=== PATIENT | male | born 1960 | race Caucasian/White ===

== ENCOUNTER → 2020-03-09 | Outpatient (CLI) | payer OTHER, SELFPAY | PROVIDERS: Referring Provider Internal Medicine; Visit Provider Internal Medicine | DX: Z23 Encounter for immunization (principal) | CPT/HCPCS: 90471; 90686 ==

== ENCOUNTER → 2020-06-09 07:33 | Outpatient (CLI) | payer OTHER, SELFPAY ==
[2020-06-09] MEDS: COVID-19 VACC(MODERNA-1)/PF 100 MCG/0.5 ML VIAL IM (07:38)
== END ==
PROVIDERS: Visit Provider Internal Medicine
DX: Z23 Encounter for immunization (principal)
CPT/HCPCS: 0011A; 91301

== ENCOUNTER → 2020-07-06 07:42 | Outpatient (CLI) | payer OTHER, SELFPAY ==
[2020-07-06] MEDS: COVID-19 VACC #2, MRNA(MOD) 100 MCG/0.5 ML VIAL IM (07:48)
== END ==
PROVIDERS: Visit Provider Internal Medicine
DX: Z23 Encounter for immunization (principal)
CPT/HCPCS: 0012A; 91301

== ENCOUNTER → 2020-12-19 09:46 | Outpatient (CLI) | payer OTHER, SELFPAY ==
--- NOTE | 2020-12-19 09:48 | DI.RAD.S_ITS ---
PROCEDURE: XR LUMBAR SPINE MIN 4V INDICATIONS: BACK PAIN TECHNIQUE: 5 views of the lumbar spine were acquired, including bilateral oblique views. COMPARISON: [facility], MR, LUMBAR SPINE W/O CONTRAST, 05/31/2014, 14:46. FINDINGS: Bones: 5 nonrib-bearing vertebrae are present. There is trace dextroconvex curvature of the lumbar spine. No vertebral body compression fractures. No suspicious bony lesions. Multilevel disc space narrowing and degenerative endplate changes are seen that are worst at the L4-5 and L5-S1 levels. Facet hypertrophy is seen at L4-5 and L5-S1. Soft tissues: Overlying bowel gas pattern is normal. No suspicious soft tissue calcifications. Oblique images: No pars defects. IMPRESSION: No acute osseous abnormality. Multilevel spondylosis. Dictated by: Hiram Hamilton M.D. on 12/19/2020 at 11:58 Approved by: Hiram Hamilton M.D. on 12/19/2020 at 12:01
== END ==
PROVIDERS: PCP Family Medicine; Referring Provider Physical Medicine & Rehabilitation; Visit Provider Physical Medicine & Rehabilitation
DX: M51.26 Other intervertebral disc displacement, lumbar region (principal); M54.9 Dorsalgia, unspecified; M47.816 Spondylosis without myelopathy or radiculopathy, lumbar region; M47.817 Spondylosis without myelopathy or radiculopathy, lumbosacral region
CPT/HCPCS: 72110

== ENCOUNTER → 2021-01-04 10:54 | Outpatient (CLI) | payer OTHER, SELFPAY ==
--- NOTE | 2021-01-04 10:55 | DI.MRI.S_ITS ---
PROCEDURE: MR LUMBAR SPINE WO CON INDICATIONS: lumbar radicu TECHNIQUE: Noncontrast sagittal T1 spin echo and T2 fast echo, sagittal STIR, axial T1 and T2 fast spin echo through the lumbar spine. In cases with scoliosis, additional coronal T2 fast spin echo may be performed. COMPARISON: [facility], CR, XR LUMBAR SPINE MIN 4V, 12/19/2020, 9:49. [facility], MR, LUMBAR SPINE W/O CONTRAST, 05/31/2014, 14:46. FINDINGS: Image quality: This examination is limited by involuntary motion artifact. Alignment and Curvature: There is minimal retrolisthesis seen at L3-L4, L4-L5, and L5-S1. Bone Marrow: Marrow is of normal overall signal. No acute vertebral body compression fractures. Spinal Cord: Conus medullaris terminates at the L1 level. Visualized cord demonstrates normal signal and size. Paraspinous Soft Tissues: No paravertebral masses. T11-T12: At least moderate loss of disc height is seen. Loss of disc signal is seen. Bridging endplate osteophytes are seen. At least moderate neural foraminal narrowing can be seen. Mild central canal narrowing is seen. These imaging findings have progressed compared to the prior study. T12-L1: Normal appearance. L1-L2: The disc height is well-preserved. Loss of disc signal is seen at this level. Mild generalized disc bulge is seen. Mild to moderate bilateral neural foraminal narrowing can be seen. No central canal narrowing is seen. These imaging findings have progressed compared to the prior study. L2-L3: The disc height is well-preserved. Loss of disc signal is seen at this level. Mild to moderate disc bulge is seen. Mild facet joint hypertrophy is seen. There is at least moderate bilateral neural foraminal narrowing seen at this level. There is a degree of compression seen upon the exiting nerve roots. Moderate central canal narrowing is seen. The previously seen right lateral disc extrusion is no longer definitely seen. When comparison is made with the prior images, these findings are otherwise similar. L3-L4: Moderate loss of disc height is seen. Loss of disc signal is seen. Moderate disc bulge is seen, which is eccentric to the left. Mild facet joint hypertrophy is seen. There is [id number] right-sided and at least moderate left-sided neural foraminal narrowing seen. There is a degree of compression seen upon the exiting left L3 nerve root. Moderate central canal narrowing is seen. When comparison is made with the prior images, these findings are similar. L4-L5: [id number] loss of disc height and disc signal can be seen. At least moderate disc bulge is seen, which is eccentric to the right. There is at least moderate facet hypertrophy seen at this level. There is at least moderate left-sided and moderate to severe right-sided neural foraminal narrowing seen.22There is a degree of compression seen upon the exiting nerve roots. Moderate central canal narrowing is seen. There is slight progression compared to 2014. L5-S1: Moderate to severe loss of disc height and disc signal can be seen at this level. Reactive marrow endplate changes are seen, which are hyperintense on T1-weighted and T2-weighted imaging and most consistent with fatty metaplasia (Modic type II changes). At least moderate disc bulge is seen at this level. Moderate facet joint hypertrophy is seen. There is moderate to severe bilateral neural foraminal narrowing seen, which is worse on the left than on the right. There is a degree of compression seen upon the exiting nerve roots. The central canal is widely patent. When comparison is made with the prior images, these findings are similar. IMPRESSION: Multiple levels of lumbar spine degenerative change are seen, which are overall slightly progressed compared to 2014. Dictated by: Jay Snider M.D. on 01/04/2021 at 10:42 Approved by: Jay Snider M.D. on 01/04/2021 at 10:48
== END ==
PROVIDERS: PCP Family Medicine; Referring Provider Physical Medicine & Rehabilitation; Visit Provider Physical Medicine & Rehabilitation
DX: M47.26 Other spondylosis with radiculopathy, lumbar region (principal); M47.27 Other spondylosis with radiculopathy, lumbosacral region
CPT/HCPCS: 72148

== ENCOUNTER → 2021-03-21 | Outpatient (CLI) | payer OTHER, SELFPAY | PROVIDERS: PCP Family Medicine; Referring Provider Internal Medicine; Visit Provider Internal Medicine | DX: Z23 Encounter for immunization (principal) | CPT/HCPCS: 90471; 90686 ==

== ENCOUNTER → 2022-03-06 11:29 | Outpatient (CLI) | payer OTHER, SELFPAY | PROVIDERS: PCP Family Medicine; Referring Provider Internal Medicine; Visit Provider Internal Medicine | DX: Z23 Encounter for immunization (principal) | CPT/HCPCS: 90471; 90686 ==

== ENCOUNTER → 2022-09-26 08:49 | Outpatient (CLI) | payer OTHER, SELFPAY ==
--- NOTE | 2022-09-26 08:51 | DI.RAD.S_ITS ---
PROCEDURE: XR SHOULDER RT MIN 2V INDICATIONS: Right shoulder impingement TECHNIQUE: 3 views of the shoulder were acquired. COMPARISON: None. FINDINGS: Bones: No fractures or dislocations. No suspicious bony lesions. Visualized ribs appear intact. Intact glenoid screw with no evidence of hardware failure or loosening. Moderate to severe glenohumeral joint degenerative change with severe joint space loss at the inferior aspect of the glenohumeral joint. Soft tissues: No suspicious soft tissue calcifications. IMPRESSION: Moderate to severe glenohumeral joint degenerative change. Dictated by: Rex Mcleod M.D. on 09/26/2022 at 11:22 Approved by: Rex Mcleod M.D. on 09/26/2022 at 11:24
== END ==
PROVIDERS: PCP Family Medicine; Referring Provider Physical Medicine & Rehabilitation; Visit Provider Physical Medicine & Rehabilitation
DX: M75.41 Impingement syndrome of right shoulder (principal)
CPT/HCPCS: 73030

== ENCOUNTER → 2023-02-12 07:24 | Outpatient (CLI) | payer OTHER, SELFPAY ==
--- NOTE | 2023-02-12 07:25 | DI.MRI.S_ITS ---
PROCEDURE: MR SHOULDER RT WO/W CON INDICATIONS: Glenohumeral DJD hx of dislocation and ivania procedure TECHNIQUE: Noncontrast oblique coronal STIR, oblique sagittal T1 spin echo and STIR, axial T1 spin echo with and without fat saturation and STIR through the shoulder. Post-contrast oblique coronal, oblique sagittal, and axial T1 spin echo with fat saturation through the shoulder. COMPARISON: [facility], CR, XR SHOULDER RT MIN 2V, 09/26/2022, 8:47. FINDINGS: Image quality: Excellent. Rotator cuff: There is high-grade partial articular sided tearing of the supraspinatus tendon and infraspinatus tendon at their distal insertions. A nonedematous 8 mm ossification is seen along the distal supraspinatus tendon near its insertion onto the greater tuberosity that may represent the sequela of a remote prior avulsion injury versus an intra-articular loose body or less likely calcific tendinopathy. The teres minor tendon is intact. The subscapularis tendon is partially obscured but glenoid metal artifact, but appears to demonstrate tendinosis and focal low-grade partial intrasubstance tearing distally. No significant rotator cuff muscle atrophy is seen. Bones and bursae: No acute osseous fracture. A metal screw is noted at the anterior glenoid with associated metal artifact that obscures adjacent structures. There appears to be adequate bone stock at the anteroinferior glenoid. A chronic Hill-Sachs lesion is seen at the posterosuperior humeral head measuring up to 28 x 25 x 9 mm. Chronic cystic changes are seen at the posterosuperior humeral head and the greater tuberosity. No significant glenohumeral effusion. Moderate to severe degenerative changes are seen at the acromioclavicular joint with subchondral edema, subchondral cystic changes, and inferiorly projecting osteophytes that impinge upon the dorsal supraspinatus. A small amount of fluid is seen in the subacromial/subdeltoid bursa. Capsule and soft tissues: No enhancing soft tissue mass. There is nondisplaced tearing of the posterior labrum with uptake of seldovia joint fluid. The anterior labrum is not well evaluated due to metal artifact. The proximal biceps long head tendon is intact. No capsular defect is seen. IMPRESSION: 1. Postsurgical changes are seen from anterior glenoid augmentation with associated metal artifact that obscures adjacent structures including the anterior labrum. 2. Nondisplaced tearing of the posterior labrum. 3. Moderate to large chronic Hill-Sachs lesion at the posterosuperior humeral head measuring 28 x 25 x 9 mm. 4. High-grade partial articular sided tearing of the supraspinatus tendon and the infraspinatus tendon at their distal insertions. A nonedematous 8 mm ossification at the distal supraspinatus tendon may be the sequela of a remote prior avulsion injury versus an intra-articular loose body or less likely calcific tendinopathy. 5. Tendinosis and suspected focal low-grade partial intrasubstance tearing of the subscapularis tendon at the superior insertion. 6. Moderate to severe acromioclavicular osteoarthrosis including inferiorly projecting osteophyte formation that impinges upon the dorsal supraspinatus. Approved by: Hiram Hamilton M.D. on 02/15/2023 at 14:14
== END ==
PROVIDERS: PCP Family Medicine; Referring Provider Physical Medicine & Rehabilitation; Visit Provider Physical Medicine & Rehabilitation
DX: M19.011 Primary osteoarthritis, right shoulder (principal); M75.111 Incomplete rotator cuff tear or rupture of right shoulder, not specified as traumatic; S43.491A Other sprain of right shoulder joint, initial encounter; Z87.39 Personal history of other diseases of the musculoskeletal system and connective tissue
CPT/HCPCS: 73223; A9579

== ENCOUNTER 2023-03-07 15:45 | Outpatient (CLI) | payer OTHER, SELFPAY ==
--- NOTE | 2023-03-07 15:46 | DI.RAD.S_ITS ---
PROCEDURE: PAIN L/SI FACET INJ/BLK 1STL INDICATIONS: SPONDYLOSIS COMPARISON: None. FINDINGS: Fluoroscopic spot filming was performed to verify placement of spinal needles at the right L4, L5 and S1 pedicular level(s), as labeled on the films. Appropriate location(s) of the needle tip(s) was confirmed by injection of iodinated contrast. IMPRESSION: Access needles at the b right L4, L5 and S1 pedicles for right L4, L5 and S1 medial branch block. Dictated by: Monique Leigh MD, PhD on 03/07/2023 at 17:06 Approved by: Monique Leigh MD, PhD on 03/07/2023 at 17:07
[2023-03-07 16:00] VITALS: BP 197/75; PULSE 61; RESP 20; TEMP 36.3; O2SAT 99
[2023-03-07 16:28] VITALS: BP 129/73; PULSE 57; RESP 14; O2SAT 100
[2023-03-07] MEDS: BUPIVACAINE 0.5% (PF) 10 ML VIAL 2 ML INJ (16:29)
[2023-03-07] MEDS: iopamidoL 15 ML VIAL 3 ML INJ (16:29)
[2023-03-07 16:33] VITALS: BP 132/77; PULSE 60; RESP 15; O2SAT 99
[2023-03-07 16:34] VITALS: BP 132/78; PULSE 58; RESP 19; O2SAT 99
--- NOTE | 2023-03-07 16:38 | PM.PROC.IR.1 ---
Date/Time/Diagnoses Date of procedure: 03/07/23 Time of procedure: 16:38 Pre-procedure diagnosis: 1. FACET ARTHROPATHY Post-procedure diagnosis: same Procedure Notes Procedure: 1. Right L4, L5 and S1 MB BLOCKS LA Indications: Bijan is referred by Dr. Stanley for treatment of Right Axial LBP. Physician: Jeffrey Miller Total Fluoroscopy time (seconds): 7 Total sedation minutes: 0 Complications: none Procedure in detail & Post-procedure care: DESCRIPTION OF PROCEDURE Fluoroscopically guided, contrast-controlled right L4, L5 and S1 medial branch blocks with 0.5cc of 0.5% Marcaine. Following review of allergy and review of potential side effects and complications, including, but not necessarily limited to, infection, allergic reaction, local tissue breakdown, nerve injury, paralysis, stroke and possible , the patient indicated that the patient understood and agreed to proceed. An informed consent document was signed by the patient, witnessed by a nurse, and placed in the patient's chart. After review of previous anaesthesic history and IV conscious sedation the patient was deemed safe to proceed with today?s procedure with IV conscious sedation as ASA class II designation. Safety time-out was performed to confirm patient ID, procedure to be performed and site of procedure. IV sedation was deemed unnecessary and thus not administered by the RN after DO order, titrated to patient comfort during the course of the procedure while the patient remained responsive to all verbal commands In the prone position, following sterile prep and drape of the lumbar region, the right L4, L5 and S1 anatomical location of the medial branch of the dorsal ramus was identified fluoroscopically. Subsequently an anesthetic skin wheal using 1% lidocaine solution was initiated at each of the anatomical spots. Subsequently then a 22-gauge 3.5-inch spinal needle was atraumatically introduced and advanced under fluoroscopic guidance at each of the corresponding sites at the right L4, L5 and S1 MB. After negative aspiration, 0.2 cc of Isovue 200 was injected, confirming placement without vascular or intrathecal uptake. Subsequently then 0.5 cc of 0.5% Marcaine solution was injected at each of the corresponding sites at the right L4, L5 and S1 medial branch locations. The patient tolerated the procedure well without signs or symptoms of complications. The procedure tolerated the procedure well without signs or symptoms of complications prior to transfer to the recovery area continued monitoring without incident. Post-procedure, the patient was monitored initiating provocative activities to measure the amount of relief from block of the facetogenic pain. The patient reported a VAS of 7 prior to the procedure and a post-procedure VAS of 1. It has been a pleasure to assist in the diagnostic and therapeutic care of your patient. POST OP INSTRUCTIONS The patient was provided with a Pain Log to complete over the next several hours and subsequent days prior to the patient's follow up with the ordering physician. If the patient has supervisor concrete block plant relief to the solution applied, then they may be a candidate for medial branch rhizotomy. The patient is aware, was provided, once again, with a Pain Log and will follow up with the referring physician for review and clinical correlation.
[2023-03-07 16:40] VITALS: BP 135/79; PULSE 52; RESP 16; O2SAT 97
== END 2023-03-07 16:50 | disposition home or self-care (01) ==
LOC: RAD 15:45
PROVIDERS: PCP Family Medicine; Referring Provider Physical Medicine & Rehabilitation; Visit Provider Physical Medicine & Rehabilitation
DX: M47.816 Spondylosis without myelopathy or radiculopathy, lumbar region (principal)
CPT/HCPCS: 64493; 64494

== ENCOUNTER → 2023-03-19 | Outpatient (CLI) | payer OTHER, SELFPAY | PROVIDERS: PCP Family Medicine; Referring Provider Family Medicine; Visit Provider Family Medicine | DX: Z23 Encounter for immunization (principal) | CPT/HCPCS: 90471; 90686 ==

== ENCOUNTER 2023-03-26 14:51 | Outpatient (CLI) | payer OTHER, SELFPAY ==
--- NOTE | 2023-03-26 14:52 | DI.RAD.S_ITS ---
PROCEDURE: PAIN L/SI FACET INJ/BLK 1STL INDICATIONS: SPONDYLOSIS COMPARISON: [facility], , PAIN L/SI FACET INJ/BLK 1STL, 03/07/2023, 16:28. FINDINGS: Fluoroscopic spot filming was performed to verify placement of spinal needles at the right L4, L5 and S1 level(s), as labeled on the films. Appropriate location(s) of the needle tip(s) was confirmed by injection of iodinated contrast. IMPRESSION: Access needles placed for right L4, L5 and S1 medial branch blocks. Dictated by: Monique Leigh MD, PhD on 03/26/2023 at 15:36 Approved by: Monique Leigh MD, PhD on 03/26/2023 at 15:37
[2023-03-26 15:00] VITALS: BP 127/75; PULSE 62; RESP 16; TEMP 36.1; O2SAT 99
[2023-03-26 15:12] VITALS: BP 136/70; PULSE 61; RESP 15; O2SAT 99
[2023-03-26] MEDS: iopamidoL 15 ML VIAL 3 ML INJ (15:12)
[2023-03-26] MEDS: LIDOCAINE 2% INJ SDV 5ML 2 ML INJ (15:13)
[2023-03-26 15:17] VITALS: BP 137/75; PULSE 60; RESP 21; O2SAT 100
[2023-03-26 15:18] VITALS: BP 139/80; PULSE 60; RESP 19; O2SAT 100
[2023-03-26 15:20] VITALS: BP 132/81; PULSE 63; RESP 16; O2SAT 100
--- NOTE | 2023-03-26 15:24 | PM.PROC.IR.1 ---
Date/Time/Diagnoses Date of procedure: 03/26/23 Time of procedure: 15:24 Pre-procedure diagnosis: Lumbar Facet Arthropathy Post-procedure diagnosis: same Procedure Notes Procedure: 1. Right L4, L5 and S1 MB BLOCKS SA Indications: Bijan is referred by Dr. Stanley for treatment of Right Axial LBP. Physician: Jeffrey Miller Total Fluoroscopy time (seconds): 5 Total sedation minutes: 0 Complications: none Procedure in detail & Post-procedure care: DESCRIPTION OF PROCEDURE Fluoroscopically guided, contrast-controlled right L4, L5 and S1 medial branch blocks with 0.5cc of 2% Lidocaine. Following review of allergy and review of potential side effects and complications, including, but not necessarily limited to, infection, allergic reaction, local tissue breakdown, nerve injury, paralysis, stroke and possible , the patient indicated that the patient understood and agreed to proceed. An informed consent document was signed by the patient, witnessed by a nurse, and placed in the patient's chart. After review of previous anaesthesic history and IV conscious sedation the patient was deemed safe to proceed with today?s procedure with IV conscious sedation as ASA class II designation. Safety time-out was performed to confirm patient ID, procedure to be performed and site of procedure. IV sedation was deemed unnecessary and thus was not administered by the RN after DO order, titrated to patient comfort during the course of the procedure while the patient remained responsive to all verbal commands In the prone position, following sterile prep and drape of the lumbar region, the right L4, L5 and S1 anatomical location of the medial branch of the dorsal ramus was identified fluoroscopically. Subsequently an anesthetic skin wheal using 1% lidocaine solution was initiated at each of the anatomical spots. Subsequently then a 22-gauge 3.5-inch spinal needle was atraumatically introduced and advanced under fluoroscopic guidance at each of the corresponding sites at the right L4, L5 and S1 MB. After negative aspiration, 0.2 cc of Isovue 200 was injected, confirming placement without vascular or intrathecal uptake. Subsequently then 0.5 cc of 2% Lidocaine solution was injected at each of the corresponding sites at the right L4, L5 and S1 medial branch locations. The patient tolerated the procedure well without signs or symptoms of complications. The procedure tolerated the procedure well without signs or symptoms of complications prior to transfer to the recovery area continued monitoring without incident. Post-procedure, the patient was monitored initiating provocative activities to measure the amount of relief from block of the facetogenic pain. The patient reported a VAS of 7 prior to the procedure and a post-procedure VAS of 1. It has been a pleasure to assist in the diagnostic and therapeutic care of your patient. POST OP INSTRUCTIONS The patient was provided with a Pain Log to complete over the next several hours and subsequent days prior to the patient's follow up with the ordering physician. If the patient has component engineer relief to the solution applied, then they may be a candidate for medial branch rhizotomy. The patient is aware, was provided, once again, with a Pain Log and will follow up with the referring physician for review and clinical correlation.
== END 2023-03-26 15:33 | disposition home or self-care (01) ==
LOC: RAD 14:51
PROVIDERS: PCP Family Medicine; Referring Provider Physical Medicine & Rehabilitation; Visit Provider Physical Medicine & Rehabilitation
DX: M47.816 Spondylosis without myelopathy or radiculopathy, lumbar region (principal)
CPT/HCPCS: 64493; 64494

== ENCOUNTER 2023-05-16 10:54 | Outpatient (CLI) | payer OTHER, SELFPAY | END 2023-05-16 11:30 | disposition home or self-care (01) | LOC: RAD 10:56 | PROVIDERS: Referring Provider Physical Medicine & Rehabilitation; Visit Provider Physical Medicine & Rehabilitation ==

== ENCOUNTER 2023-06-06 12:50 | Outpatient (CLI) | payer OTHER, SELFPAY ==
[2023-06-06 13:00] VITALS: BP 120/72; PULSE 61; RESP 18; O2SAT 100
--- NOTE | 2023-06-06 13:00 | DI.RAD.S_ITS ---
PROCEDURE: PAIN L/SI FACET INJ/BLK 1STL INDICATIONS: Left L4, L5 and S1 MBB LA COMPARISON: MR, MR LUMBAR SPINE WO CON, 01/04/2021, 10:59. MR, LUMBAR SPINE W/O CONTRAST, 05/31/2014, 14:46. FINDINGS: Fluoroscopic spot filming was performed to verify placement of spinal needles at the left L4, L5 and S1 level(s), as labeled on the films. Appropriate location(s) of the needle tip(s) was confirmed by injection of iodinated contrast. IMPRESSION: Fluoroscopy guidance for pain management. Dictated by: Aliya Javier M.D. on 06/06/2023 at 14:15 Approved by: Aliya Javier M.D. on 06/06/2023 at 14:16
[2023-06-06 13:15] VITALS: BP 132/73; PULSE 58; RESP 17; O2SAT 99
[2023-06-06 13:20] VITALS: BP 117/71; PULSE 58; RESP 19; O2SAT 100
[2023-06-06] MEDS: BUPIVACAINE 0.5% (PF) 10 ML VIAL 2 ML INJ (13:21)
[2023-06-06] MEDS: iopamidoL 15 ML VIAL 3 ML INJ (13:22)
[2023-06-06 13:25] VITALS: BP 124/76; PULSE 62; RESP 18; O2SAT 98
--- NOTE | 2023-06-06 13:33 | PM.PROC.IR.1 ---
Date/Time/Diagnoses Date of procedure: 06/06/23 Time of procedure: 13:33 Pre-procedure diagnosis: 1. FACET ARTHROPATHY Post-procedure diagnosis: same Procedure Notes Procedure: 1. Left L4, L5 and S1 MB BLOCKS LA Indications: Bijan is referred for treatment of Left Axial LBP. Physician: Jeffrey Miller Total Fluoroscopy time (seconds): 7 Total sedation minutes: 0 Complications: none Procedure in detail & Post-procedure care: DESCRIPTION OF PROCEDURE Fluoroscopically guided, contrast-controlled left L4, L5 and S1 medial branch blocks with 0.5cc of 0.5% Marcaine. Following review of allergy and review of potential side effects and complications, including, but not necessarily limited to, infection, allergic reaction, local tissue breakdown, nerve injury, paralysis, stroke and possible , the patient indicated that the patient understood and agreed to proceed. An informed consent document was signed by the patient, witnessed by a nurse, and placed in the patient's chart. After review of previous anaesthesic history and IV conscious sedation the patient was deemed safe to proceed with today?s procedure with IV conscious sedation as ASA class II designation. Safety time-out was performed to confirm patient ID, procedure to be performed and site of procedure. IV sedation was deemed unnecessary and this not administered by the RN after DO order, titrated to patient comfort during the course of the procedure while the patient remained responsive to all verbal commands. In the prone position, following sterile prep and drape of the lumbar region, the left L4, L5 and S1 anatomical location of the medial branch of the dorsal ramus was identified fluoroscopically. Subsequently an anesthetic skin wheal using 1% lidocaine solution was initiated at each of the anatomical spots. Subsequently then a 22-gauge 3.5-inch spinal needle was atraumatically introduced and advanced under fluoroscopic guidance at each of the corresponding sites at the left L4, L5 and S1 MB. After negative aspiration, 0.2cc of Isovue 200 was injected, confirming placement without vascular or intrathecal uptake. Subsequently then 0.5cc of 0.5% Marcaine solution was injected at each of the corresponding sites at the left L4, L5 and S1 medial branch locations. The patient tolerated the procedure well without signs or symptoms of complications. The patient tolerated the procedure well without signs or symptoms of complications prior to transfer to the recovery area continued monitoring without incident. Post-procedure, the patient was monitored initiating provocative activities to measure the amount of relief from block of the facetogenic pain. The patient reported a VAS of 7 prior to the procedure and a post-procedure VAS of 1. It has been a pleasure to assist in the diagnostic and therapeutic care of your patient. POST OP INSTRUCTIONS The patient was provided with a Pain Log to complete over the next several hours and subsequent days prior to the patient's follow up with the ordering physician. If the patient has cooler room worker relief to the solution applied, then they may be a candidate for medial branch rhizotomy. The patient is aware, was provided, once again, with a Pain Log and will follow up with the referring physician for review and clinical correlation.
[2023-06-06 13:35] VITALS: BP 120/78; PULSE 60; RESP 19; O2SAT 100
== END 2023-06-06 13:35 | disposition home or self-care (01) ==
LOC: RAD 12:51
PROVIDERS: Referring Provider Physical Medicine & Rehabilitation; Visit Provider Physical Medicine & Rehabilitation
DX: M47.816 Spondylosis without myelopathy or radiculopathy, lumbar region (principal); M47.817 Spondylosis without myelopathy or radiculopathy, lumbosacral region
CPT/HCPCS: 64493; 64494; 64495

== ENCOUNTER 2023-08-21 15:45 | Outpatient (CLI) | payer OTHER, SELFPAY ==
[2023-08-21 15:50] VITALS: BP 133/80; PULSE 61; RESP 16; TEMP 36.2; O2SAT 100
[2023-08-21 16:00] VITALS: BP 131/72; PULSE 62; RESP 18; O2SAT 98
--- NOTE | 2023-08-21 16:00 | DI.RAD.S_ITS ---
PROCEDURE: PAIN L/SI FACET INJ/BLK 1STL INDICATIONS: SPONDYLOSIS COMPARISON: [facility], , PAIN L/SI FACET INJ/BLK 1STL, 06/06/2023, 14:20. FINDINGS: Fluoroscopic spot filming was performed to verify placement of spinal needles at the left L3, L4, L5 level(s), as labeled on the films. Appropriate location(s) of the needle tip(s) was confirmed by injection of iodinated contrast. IMPRESSION: Fluoroscopic support for left L3, L4, L5 medial branch blocks. Please see separate procedure note for further details. Dictated by: Anton Nelson M.D. on 08/21/2023 at 17:39 Approved by: Anton Nelson M.D. on 08/21/2023 at 17:39
[2023-08-21 16:05] VITALS: BP 145/83; PULSE 59; RESP 19; O2SAT 98
[2023-08-21] MEDS: iopamidoL 15 ML VIAL 3 ML INJ (16:07)
[2023-08-21] MEDS: LIDOCAINE 2% INJ SDV 5ML 5 ML INJ (16:07)
--- NOTE | 2023-08-21 16:13 | P.PCN_ITS ---
Date/Time/Diagnoses Date of procedure: 08/21/23 Time of procedure: 16:00 Procedure Notes Physician: Donell Treviño Total Fluoroscopy time (seconds): 12 Total sedation minutes: 0 Procedure in detail & Post-procedure care: Left L3, 4, 5 Lumbar Medial Branch Blocks Indications: Bijan is presenting for treatment of lumbar spondylosis with low back pain. Preoperative diagnosis: Lumbar spondylosis Postoperative diagnosis: Same Pre-procedure History: Patient demonstrates today moderate to severe non- radicular back pain without neurologic deficit aggravated by hyperextension yes Back pain greater than leg pain? yes Patient today has tenderness over the suspected joint(s) yes History of post-traumatic injury? no Hypertrophic arthropathy yes Back pain associated with suspected motion segment instability, hypermobility or pseudoarthrosis no Focused Examination: Ax3 Mood and affect are normal Vital Signs: VSS Consent: Following review of allergies and potential side effects/complications, including, but not necessarily limited to, infection, allergic reaction, local tissue breakdown, stroke, temporary or permanent nerve injury, paralysis, and possible , the patient indicated that they understood and agreed to proceed.? An informed consent document was signed by the patient, witnessed by a nurse and placed in the patient's chart.? Additionally, other treatment options including medications and physical therapy were reviewed with the patient. All q uestions were answered. Site was then marked. Anesthesia: Local Position: Prone Monitoring: NIBP, Pulse oximetry, 3 lead EKG Needle used: 22 ga 3.5 inch spinal needle Contrast: Isovue 300M Injectate: 2% lidocaine 1 mL per site Procedure: The patient was brought into the procedure room and positioned into the prone position. Skin was prepped with a Chloraprep solution, allowed to air dry, and then draped in sterile fashion.? The left L4-5 and L5-S1 facet joints were visually identified with fluoroscopy. Lidocaine 1% was used to anesthetize the skin over each target destination with a 25ga needle. A 22 ga, 3.5 inch spinal needle was advanced to the location of the medial branch at the junction of the superior articular process and the transverse process at L4,5 and the base of the SAP of the sacrum using intermittent fluoroscopy in the AP view. Isovue 300M contrast 0.2ml was injected at each level outlining the medial borders for each level and the base of the SAP of the sacrum in the AP and lateral views. There was no evidence of vascular or intrathecal uptake. The above injectate was slowly injected at each target destination. Post Procedure: Patient was taken to the recovery and monitored. The patient was provided a Pain Log to continue to record the patient's response to the target- specific procedure prior to the patient's follow-up visit with the referring physician. Patient was stable upon discharge. Detailed post procedure instructions were provided. Patient was asked to call in the event of worsening pain, fever, weakness, numbness or bladder or bowel incontinence. Based on the medial branches blocked today, if the patient meets insurance criteria for radiofrequency, the treatment should result in the denervation of the left L4-5 and L5-S1 facet joint nerves. We would expect to denervate a total of 2 facets during the radiofrequency ablation.
[2023-08-21 16:14] VITALS: BP 125/81; PULSE 61; RESP 16; O2SAT 100
== END 2023-08-21 16:19 | disposition home or self-care (01) ==
LOC: RAD 15:45
PROVIDERS: Referring Provider Anesthesiology; Visit Provider Anesthesiology
DX: M47.816 Spondylosis without myelopathy or radiculopathy, lumbar region (principal)
CPT/HCPCS: 64493; 64494

== ENCOUNTER → 2023-09-04 12:07 | Outpatient (CLI) | payer OTHER, SELFPAY ==
[2023-09-04 12:53] LABS: Add Manual Diff / Slide Review NO; Basophils Absolute Auto 100 /uL (0-100); Eosinophils Absolute Auto 100 /uL (0-450); Eosinophils Percent Auto 1.1 % (2-4); Hematocrit 42.5 % (41-53); Hemoglobin 14.9 g/dL (13.5-17.5); Lymphocytes Absolute Auto 2000 /uL (1100-4500); Lymphocytes Percent Auto 34.2 % (25-40); Mean Corpuscular Hemoglobin 32.4 PG (26-34); Mean Corpuscular Volume 92.7 fL (80-100); Monocytes Absolute Auto 500 /uL (0-900); Monocytes Percent Auto 8.7 % (3-14); Neutrophils Absolute Auto 3200 /uL (1500-7000); Platelet Count 269 X10^3/uL (150-400); Red Blood Cell Count 4.59 X10^6/uL (4.5-5.9); Red Cell Distribution Width 13.3 % (11.6-14.8); White Blood Cell Count 5.7 X10^3/uL (4.5-11.0)
[2023-09-04 13:18] LABS: Alanine Aminotransferase 33 IU/L (<50); Albumin 4.2 g/dL (3.5-5.0); Albumin Globulin Ratio 1.8 (1.0-2.8); Alkaline Phosphatase 44 U/L (38-126); Aspartate Aminotransferase 42 IU/L (17-59); BUN Creatinine Ratio 21.2 (6-22); Bilirubin Total 1.2 mg/dL (0.2-1.3); Blood Urea Nitrogen 22 mg/dL (9-20); Calcium 9.1 mg/dL (8.4-10.2); Carbon Dioxide 26 mmol/L (22-32); Chloride 104 mmol/L (98-107); Cholesterol 175 mg/dL (140-199); Estimated Glomerular Filt Rate > 60 mL/min (>60); Globulin 2.4 g/dL (1.7-4.1); Glucose 99 mg/dL (80-110); HDL Cholesterol 61 mg/dL (40-60); HEMOLYSIS < 15 (0-50); LDL Cholesterol Calculated 102 mg/dL (<100); Potassium 4.2 mmol/L (3.4-5.1); Sodium 136 mmol/L (137-145); Total Protein 6.6 g/dL (6.3-8.2); Triglycerides 59 mg/dL (35-150)
[2023-09-04 13:49] LABS: Prostate Specific Antigen 1.34 ng/mL (0.10-4.00)
== END ==
PROVIDERS: Referring Provider Specialist; Visit Provider Specialist
DX: Z13.220 Encounter for screening for lipoid disorders (principal); Z13.9 Encounter for screening, unspecified
CPT/HCPCS: 36415; 80053; 80061; 84153; 85025

== ENCOUNTER → 2023-10-09 06:52 | Outpatient (CLI) | payer OTHER, SELFPAY ==
--- NOTE | 2023-10-09 06:53 | DI.MRI.S_ITS ---
PROCEDURE: MR LUMBAR SPINE WO/W CON INDICATIONS: LUMBAR FACET ARTHROPATHY TECHNIQUE: Noncontrast sagittal T1 spin echo and T2 fast echo, sagittal STIR, and T2 fast spin echo through the lumbar spine. In cases with scoliosis, additional coronal T2 fast spin echo may be performed. COMPARISON: [facility], CR, XR LUMBAR SPINE MIN 4V, 12/19/2020, 9:49. [facility], MR, MR LUMBAR SPINE WO CON, 01/04/2021, 10:59. FINDINGS: Image quality: Diagnostic, with note made of motion artifact. Alignment and Curvature: There is normal bony alignment. Bone Marrow: Marrow is of normal overall signal. No acute vertebral body compression fractures. Spinal Cord: Conus medullaris terminates at the L1 level. Visualized cord demonstrates normal signal and size. Paraspinous Soft Tissues: No paravertebral masses. T11-T12: At least moderate loss of disc height and disc signal can be seen. Moderate generalized disc bulge is seen. There is a superimposed central disc protrusion. Mild to moderate facet hypertrophy can be seen. There is moderate to severe bilateral neural foraminal narrowing seen, with an associated degree of compression seen upon the exiting nerve roots. Moderate central canal narrowing is seen. When comparison is made with the prior images, these findings are similar. T12-L1: Normal appearance. L1-L2: The disc height is well-preserved. Loss of disc signal is seen at this level. Mild to moderate disc bulge is seen, which is eccentric to the right. There is a right foraminal disc protrusion, as on series 6, image 8. Mild facet joint hypertrophy is seen. Moderate bilateral neural foraminal narrowing is seen. No significant central canal narrowing is seen. The degrees of neural foraminal narrowing are mildly progressed compared to the prior. L2-L3: The disc height is well-preserved. Loss of disc signal is seen at this level. Moderate disc bulge is seen, with a central/left disc extrusion. The extruded disc material is seen superiorly, seen largely posterior to the L2 vertebral body. The extruded disc material measures 2.6 cm craniocaudal. Mild to moderate facet hypertrophy can be seen. There is at least moderate bilateral neural foraminal narrowing seen, left worse than right. Moderate to severe central canal narrowing is seen, as on series 6, image 10. The disc extrusion and the associated central canal narrowing are new compared to 202. Moderate loss of disc height is seen. Loss of disc signal is seen. L3-L4: Reactive marrow endplate changes are seen which are hypointense on T1-weighted imaging and hyperintense on T2 weighted imaging, which is most consistent with edema (Modic type I changes). Moderate generalized disc bulge is seen, which is eccentric to the left. Mild facet joint hypertrophy is seen. There is moderate right-sided and at least moderate left-sided neural foraminal narrowing. Moderate central canal narrowing is seen. There is mild progression of degenerative change compared to the prior. L4-L5: At least moderate loss of disc height and disc signal can be seen. Reactive marrow endplate changes are seen posteriorly, which are hyperintense on T1-weighted and T2-weighted imaging and most consistent with fatty metaplasia (Modic type II changes). At least moderate disc bulge is seen, which is eccentric to the right. There is a mild central disc osteophyte protrusion. There is moderate right-sided and [id number] left-sided facet hypertrophy. There is at least moderate right-sided and moderate left-sided neural foraminal narrowing. Moderate central canal narrowing is seen. When comparison is made with the prior images, these findings are similar. L5-S1: Moderate loss of disc height is seen. Loss of disc signal is seen. Reactive marrow endplate changes are seen, which are hyperintense on T1-weighted and T2-weighted imaging and most consistent with fatty metaplasia (Modic type II changes). At least moderate disc bulge is seen, which is eccentric to the right. Moderate facet joint hypertrophy is seen. There is at least moderate right-sided and moderate to severe left-sided neural foraminal narrowing. There is a degree of compression seen upon the exiting nerve roots. No significant central canal narrowing is seen. There is slight progression of degenerative change compared to the prior. IMPRESSION: There is a new disc extrusion seen emanating from the L2-L3 level within the central/left location and extending superiorly. The extruded disc material measures 2.6 cm craniocaudal. There is associated moderate to severe central canal narrowing. Multiple levels of degenerative change can be seen elsewhere, which are progressed at several levels compared to 202. Dictated by: Jay Snider M.D. on 10/09/2023 at 10:08 Approved by: Jay Snider M.D. on 10/09/2023 at 10:15
== END ==
PROVIDERS: Referring Provider Anesthesiology; Visit Provider Anesthesiology
DX: M47.816 Spondylosis without myelopathy or radiculopathy, lumbar region (principal); M51.26 Other intervertebral disc displacement, lumbar region; M48.061 Spinal stenosis, lumbar region without neurogenic claudication
CPT/HCPCS: 72158; A9579